=== PATIENT | male | born 1965 | race Caucasian/White ===

== ENCOUNTER 2023-08-03 12:28 | Emergency (ER) | payer OTHER, SELFPAY ==
[2023-08-03 12:34] VITALS: BP 156/106
[2023-08-03 13:01] LABS: % Basophils 0.4 % (0-2); % Immature Granulocytes 0.7 % (0-0.5); % Lymphocytes 12.6 % (20.5-51.1); % Monocytes 10.5 % (1.7-9.3); % Neutrophils 75.8 % (42.2-75.2); Absolute Immature Granulocytes 0.1 10^3/uL (0-0.05); Absolute Monocytes 0.9 10^3/uL (0.1-0.6); Absolute Neutrophils 6.1 10^3/uL (1.4-6.5); Hematocrit 46.2 % (39.0-52.0); Hemoglobin 16.7 g/dL (13.0-18.0); Mean Corp Hgb Conc. 36.1 g/dL (33.0-37.0); Mean Corpuscular Hgb 29.3 pg (27.0-31.0); Mean Corpuscular Volume 81.2 fL (80.0-94.0); Nucleated Red Blood Cells % 0 % (-); Platelet Count 200 10^3/uL (130-400); Red Blood Cell Count 5.69 10^6/uL (4.70-6.10); Red Cell Dist. Width 12.4 % (11.5-14.5); White Blood Cell Count 8.1 10^3/uL (4.8-10.8)
[2023-08-03 13:12] LABS: ALT (SGPT) 105 U/L (0-50); AST (SGOT) 129 U/L (17-59); Albumin 4.4 g/dl (3.5-5.0); Alkaline Phosphatase 77 U/L (38-126); Blood Urea Nitrogen 17 mg/dl (9-20); Calcium 8.5 mg/dl (8.4-10.2); Carbon Dioxide 21 mmol/L (22-30); Chloride 101 mmol/L (98-107); Glucose 113 mg/dl (70-99); Potassium 3.6 mmol/L (3.5-5.1); Sodium 133 mmol/L (135-145); Total Bilirubin 0.8 mg/dl (0.2-1.3); Total Protein 7.1 g/dl (6.3-8.2); eGFR > 60.00
[2023-08-03 13:20] LABS: COVID-19 Antigen Negative (Negative)
--- NOTE | 2023-08-03 14:33 | ED.GENMED ---
Addendum entered and electronically signed by Cecelia Greene PA-C 08/10/23 08:59:
pt called back
pt had diffuse rash, oral lesions, body lesions which are now crutsted over
no pain
no fever
VZV pos
probably chicken pox
encouraged to stay home
on antifvirals, finishing course now.
Addendum entered and electronically signed by Nayan Chilel PA-C 08/08/23 07:13:
Varicella-zoster testing is positive. Patient was placed on antiviral medications. Attempted to call patient to relay the information however there was no answer. Left message to call back
Original Note:
History of Present Illness
General
Chief Complaint: Skin Problem
Time Seen by Provider: 08/03/23 13:59
Travel History
Have you had any contact with someone who has COVID-19?: No
Do you have any symptoms of coronavirus? Fever > 100 degrees, chills, cough, shortness of breath, sore throat, loss of taste or smell, muscle aches, or headache?: No
History of Present Illness
History of Present Illness:
57-year-old male with history of hypertension and hyperlipidemia presents to the emergency department for evaluation of fever and rash developing 3 days ago. Rash spread from the face and neck down toward the trunk and extremities. Rash is not
painful or itchy however he does have no intraoral lesions that are discomforting. He notes that the fever has persisted despite acetaminophen use. Resides with his parents, states his mother had a very similar rash, was just discharged from this
hospital yesterday and was diagnosed with presumptive pyoderma gangrenosum. Patient reports nausea without vomiting, also reports mild coughing. Denies any recent international travel. He was fully vaccinated as a child.
Past History
Past History
ED Past Medical History: Other (anxiety and depression)
ED Past Surgical History: Other (shoulder)
Social History
Employment: Employed
Family History
Family History: Other (non contributory)
Review of Systems
Review of Systems
Allergies reviewed?: Yes
All Other Systems: ROS reviewed and negative except as documented in HPI and ROS
Phy Exam
Physical Exam
Physical Exam:
GEN: Well appearing, NAD, WDWN
HEENT: Oral mucosa moist, no scleral icterus
Cardiac: Regular rate
Lung: No respiratory distress, no tachypnea, lungs clear to auscultation bilaterally
MSK: No gross deformity or injuries
Skin: Good color, no pallor or jaundice, widespread maculopapular and herpetiform lesions to the face, torso, and extremities including the palms and the soles of the feet. There are several intraoral lesions as well but no vesicles
Neuro: AO x3, moves all extremities freely
Psych: Calm, cooperative
Course
Orders/Labs/Results
Orders:
Orders
08/03/23 12:48
COVID-19 Antigen Urgent
Source: Nasal Swab
Complete Blood Count/With Diff Urgent
Comprehensive Metabolic Panel Urgent
Lactic Acid Urgent
Monotest Urgent
Comment: ADD
Rubeola (Measles) IgG Urgent
Blood Culture Urgent
RHONDA Source: Blood/Venous
Specimen Description:
Influenza A+B Rapid Molecular Urgent
RHONDA Source: Nasal Swab
Specimen Description:
08/03/23 14:33
Add On- LAB Urgent
Tests Added?: monospot
0.9% Sodium Chloride 1000 ml [Nss] 1,000 ml IV BOLUS
Ondansetron Injectable [Zofran] 4 mg IV NOW STA
08/03/23 14:45
Blood Culture Urgent
RHONDA Source: Blood/Venous
Specimen Description:
08/03/23 16:02
Add On - Microbiology Urgent
Tests Added?: Rubeola IgG, Rubeola virus IgM
08/03/23 16:04
Rubeola Virus IgM (Measles) [S] Urgent
Varicella-Zoster Virus By PCR [S] Urgent
Source: Vesicle Fluid
Abnormal Lab Results
08/03/23
12:48
MPV 11.0 H fL
(7.4-10.4)
Abs Immat Gran (auto) 0.1 H 10^3/uL
(0-0.05)
Absolute Lymphs (auto) 1.0 L 10^3/uL
(1.2-3.4)
Absolute Monos (auto) 0.9 H 10^3/uL
(0.1-0.6)
Immature Gran % 0.7 H %
(0-0.5)
Neutrophils % 75.8 H %
(42.2-75.2)
Lymphocytes % 12.6 L %
(20.5-51.1)
Monocytes % 10.5 H %
(1.7-9.3)
Sodium 133 L mmol/L
(135-145)
Carbon Dioxide 21 L mmol/L
(22-30)
Glucose 113 H mg/dl
(70-99)
AST 129 H U/L
(17-59)
ALT 105 H U/L
(0-50)
08/03/23 12:48
08/03/23 12:48
Vital Signs
Initial and Last Documented VS:
Initial Vital Signs
Temp Pulse Resp BP Pulse Ox
100.0 F 102 22 156/106 98
08/03/23 12:34 08/03/23 12:34 08/03/23 12:34 08/03/23 12:34 08/03/23 12:34
Last Documented Vital Signs
Temp Pulse Resp BP Pulse Ox
100.0 F 94 18 142/84 98
08/03/23 12:34 08/03/23 16:30 08/03/23 16:30 08/03/23 16:30 08/03/23 16:30
MDM/Problems Addressed
MDM/Problems Addressed:
Widespread herpetiform lesion concerning for disseminated zoster, less likely disseminated HSV. I did unroofed one of the lesions and sent for varicella-zoster PCR, given recent local measles outbreak and a family member with similar symptoms
measles antibody testing was sent as well. Patient was started empirically on antivirals, advised on quarantining until definitive diagnosis is made
*Critical Care Note
Total Time (30-74mins, 75-104mins- exclusive of procedures): Not Applicable
ED Attending Note
-
Portions of this chart may have been created with voice recognition software.� Occasional wrong word or��sound alike� substitutions may have occurred due to the inherent limitations of voice recognition software.
Discharge Plan
Departure
Patient Disposition: Home (Routine Discharge)
Date of Disposition: 08/03/23
Time of Disposition: 16:29
Patient with high blood pressure during this ER visit?: Yes
Discharge Problem:
Vesicular rash
Instructions: Chickenpox (DC)
Prescriptions:
New
valacyclovir 1 gram tablet
1,000 mg PO Q8H 7 Days Qty: 21 0RF
No Action
venlafaxine [Effexor XR] 150 MG capsule,extended release 24hr
150 mg PO HS
aspirin 81 MG tablet,chewable
81 mg PO DAILY
quetiapine [Seroquel] 50 MG tablet
50 mg PO HS
Referrals:
Venkata Nguyen MD [Family Provider] -
Activity Restrictions/Additional Instructions:
Please begin taking the antivirals as will likely not be any adverse effects of this if you do not have varicella or measles
Your test results may take up to 3 to 5 days
I recommend home quarantining until we have a formal diagnosis
If you develop neck pain, severe headaches, confusion, or intractable vomiting return to the emergency department
Interventions
Interventions:
*Risk Screen - Suicide Last Done: 08/03/23 14:59
*Neglect/Abuse Screening Last Done: 08/03/23 14:59
ED- Fall Risk Assessment Last Done: 08/03/23 14:59
*Nursing Disposition Last Done: 08/03/23 16:35
ED-Skin Assessment Last Done: 08/03/23 14:59
Discharge Date and Time
Discharge Date/Time: 08/03/23 16:35
[2023-08-03] MEDS: NSS 1000 IV (14:44)
[2023-08-03] MEDS: ZOFRAN 4 MG IV (14:47)
[2023-08-03 15:40] LABS: Monotest Negative (Negative)
[2023-08-03 16:30] VITALS: BP 142/84
[2023-08-07 16:30] LABS: Rubeola (Measles) IgG Negative
[2023-08-08 00:01] LABS: Rubeola Virus IgM (Measles) 0.15 AU (0.00-0.79)
[2023-08-08 01:31] LABS: Varicella-Zoster Source Vesicle; Varicella-Zoster Virus by PCR Detected
== END 2023-08-03 16:35 | disposition home or self-care (01) ==
LOC: EMR 12:28
PROVIDERS: Physician Assistant; EMERGENCY PHYSICIAN Emergency Medicine; FAMILY PHYSICIAN Family Medicine
DX: R50.9 Fever, unspecified (principal); R21 Rash and other nonspecific skin eruption; F41.9 Anxiety disorder, unspecified; F32.A Depression, unspecified; I10 Essential (primary) hypertension
CPT/HCPCS: 99283; 96374; 96361; 80053; 83605; 85025; 86308; 86765; 87040; 87502; 87798; 87811